=== PATIENT | female | born 1965 | race Caucasian/White ===

== ENCOUNTER 2022-07-21 12:49 | Emergency (ER) | payer SELFPAY | END 2022-07-21 15:12 | disposition home or self-care (01) | LOC: CSHERS 12:49 | DX: H66.91 Otitis media, unspecified, right ear (principal); H73.91 Unspecified disorder of tympanic membrane, right ear; F17.210 Nicotine dependence, cigarettes, uncomplicated | CPT/HCPCS: 99282 ==